=== PATIENT | female | born 1975 | race Caucasian/White ===

== ENCOUNTER 2017-05-05 05:24 | Emergency (ER) | payer OTHER ==
[2017-05-05 05:39] LABS: URINE APPEARANCE SL CLOUDY; URINE BILIRUBIN NEGATIVE (NEGATIVE); URINE BLOOD LARGE (NEGATIVE); URINE COLOR RED; URINE GLUCOSE (UA) NEGATIVE (NEGATIVE); URINE KETONE NEGATIVE (NEGATIVE); URINE LEUKOCYTE ESTERASE LARGE (NEGATIVE); URINE NITRITE NEGATIVE (NEGATIVE); URINE PROTEIN TRACE (NEGATIVE); URINE UROBILINOGEN 0.2 E.U./dL (0.20 - 1.00)
--- NOTE | 2017-05-05 05:45 | Emergency Department Record ---
History of Present Illness - General Chief complaint: Female Urogenital Problem Stated complaint: I THINK I HAVE A BLADDER INFECTION Time Seen by Provider: 05/05/17 05:25 Source: Patient Mode of Arrival: Ambulatory Limitations: No limitations - History of Present Illness Initial comments: 41 yo female presents to ED for evaluation of urinary burning and urgency that began 2 hours ago. Patient reports similar symptoms previously with UTI, denies fever or flank pain symptoms. Patient denies abdominal pain, nausea, or vomiting symptoms. MD Complaint: Dysuria Onset/Timin -: Minutes(s) Severity scale (1-10): 6 Quality: Burning, Cramping Consistency: Constant Improves with: None Worsens with: None Patient : No Associated Symptoms: Dysuria, Hematuria - Related Data Sexually active: No Home Medications Medication Instructions Recorded Confirmed Last Taken Bupropion HCl [Wellbutrin Xl] 450 mg PO DAILY 05/05/17 05/05/17 Unknown Lorazepam [Ativan] 1 mg PO DAILY 05/05/17 05/05/17 Unknown Ondansetron HCl [Zofran] 4 mg PO Q8H PRN 05/05/17 05/05/17 Unknown Scopolamine 1 each TD DAILY 05/05/17 05/05/17 Unknown Zolpidem Tartrate [Zolpidem 10 mg PO QHS 05/05/17 05/05/17 Unknown Tartrate] Previous Rx's Medication Instructions Recorded Nitrofurantoin Monohyd/M-Cryst 100 mg PO BID #13 capsule 05/05/17 [Macrobid 100 mg Capsule] Phenazopyridine HCl [Pyridium] 200 mg PO TID #5 tab 05/05/17 Allergies Allergy/AdvReac Type Severity Reaction Status Date / Time Penicillins Allergy Unknown ANAPHYLAXIS Verified 11/18/13 11:31 morphine Allergy NAUSEA AND Verified 11/18/13 11:31 VOMITING Travel Screening - Travel/Exposure Within Last 30 Days Have you traveled within the last 30 days?: No Review of Systems Constitutional: Denies: Chills, Fever, Malaise, Night sweats Eyes: Denies: Eye discharge, Eye pain ENT: Denies: Congestion, Ear pain Respiratory: Denies: Cough, Dyspnea Cardiovascular: Denies: Chest pain, Dyspnea on exertion Endocrine: Denies: Fatigue, Heat or cold intolerance Gastrointestinal: Denies: Abdominal pain, Nausea, Vomiting Genitourinary: Reports: Dysuria, Urgency. Denies: Hematuria, Incontinence, Retention Musculoskeletal: Denies: Arthralgia, Back pain, Gout, Joint swelling Skin: Denies: Bruising, Change in color Neurological: Denies: Abnormal gait, Confusion, Headache, Seizure Psychiatric: Denies: Anxiety Hematological/Lymphatic: Denies: Anemia, Blood Clots Past Medical History - SOCIAL HISTORY Smoking Status: Never smoker - RESPIRATORY Hx Respiratory Disorders: No - CARDIOVASCULAR Hx Cardio Disorders: Yes Hx Cardiac Cath: Yes Hx Heart Attack: Yes Hx Hypertension: Yes - NEURO Hx Neuro Disorders: Yes Hx Headaches: Yes - GI Hx GI Disorders: Yes Comment:: Gastroparesis - Hx Genitourinary Disorders: No - ENDOCRINE Hx Endocrine Disorders: No - MUSCULOSKELETAL Hx Musculoskeletal Disorders: No - PSYCH Hx Psych Problems: Yes Hx Anxiety: Yes Hx Depression: Yes - HEMATOLOGY/ONCOLOGY Hx Hematology/Oncology Disorders: No Family Medical History Any Significant Family History?: Yes Hx Heart Disease: Mother Hx HTN: Father, Mother Physical Exam - General General Appearance: Alert, Oriented x3, Cooperative, Mild distress, Anxious Limitations: No limitations - Head Head exam: Atraumatic, Normocephalic, Normal inspection Head exam detail: negative: Abrasion, Contusion, Steinberg's sign, General tenderness, Hematoma, Laceration - Eye Eye exam: Normal appearance. negative: Conjunctival injection, Periorbital swelling, Periorbital tenderness, Scleral icterus - ENT Ear exam: negative: Auricular hematoma, Auricular trauma Nasal Exam: negative: Active bleeding, Discharge, Dried blood, Foreign body Mouth exam: negative: Drooling, Laceration, Muffled voice, Tongue elevation - Neck Neck exam: Normal inspection. negative: Meningismus, Tenderness - Respiratory Respiratory exam: Normal lung sounds bilaterally. negative: Rales, Respiratory distress, Rhonchi, Stridor - Cardiovascular Cardiovascular Exam: Regular rate, Normal rhythm, Normal heart sounds - GI/Abdominal GI/Abdominal exam: Soft. negative: Rebound, Rigid, Tenderness - Rectal Rectal exam: Deferred - exam: Deferred - Extremities Extremities exam: Normal inspection. negative: Calf tenderness, Pedal edema, Tenderness - Back Back exam: Denies: CVA tenderness (R), CVA tenderness (L) - Neurological Neurological exam: Alert, Normal gait, Oriented X3 - Psychiatric Psychiatric exam: Anxious, Normal mood - Skin Skin exam: Normal color. negative: Abrasion Type of lesion: negative: abrasion Course Vital Signs 05/05/17 05:33 Temperature 97.7 F Pulse Rate [ 86 Pulse Ox Probe] Respiratory 18 Rate Blood Pressure 146/94 [Left Arm] Pulse Ox 97 - Reevaluation(s) Reevaluation #1: 05/05/17 05:47 UA reviewed, appears consistent with mild UTI. Will initiate treatment with Macrobid and Pyridium as directed. Medical Decision Making - Lab Data Lab Results 05/05/17 Range/Units 05:41 Urine Color Red H Urine Appearance Sl cloudy Urine pH 6.5 (5.0-8.0) Ur Specific [place] 1.010 (1.002-1.030) Urine Protein Trace H (NEGATIVE) Urine Glucose (UA) Negative (NEGATIVE) Urine Ketones Negative (NEGATIVE) Urine Blood Large H (NEGATIVE) Urine Nitrite Negative (NEGATIVE) Urine Bilirubin Negative (NEGATIVE) Urine Urobilinogen 0.2 (0.20 - 1.00) E.U./dL Ur Leukocyte Esterase Large H (NEGATIVE) Disposition Disposition: Discharge Clinical Impression: UTI (urinary tract infection) Qualifiers: Urinary tract infection type: acute cystitis Hematuria presence: with hematuria Qualified Code(s): N30.01 - Acute cystitis with hematuria Disposition: Home, Self-Care Condition: (2) Stable Instructions: Urinary Tract Infection in Women (ED) Additional Instructions: Return to ED if your symptoms worsen or if you have any concerns. Macrobid and Pyridium as directed. Follow-up with your family doctor in 3-5 days as directed. Prescriptions: Nitrofurantoin Monohyd/M-Cryst [Macrobid 100 mg Capsule] 100 mg PO BID #13 capsule Phenazopyridine HCl [Pyridium] 200 mg PO TID #5 tab Forms: Patient Portal Access Time of Disposition: 05:50 Quality - Quality Measures Quality Measures: N/A - Blood Pressure Screening Does Patient Have Any of the Following: Active Dx of HTN Blood Pressure Classification: Hypertensive Reading Systolic Measurement: 146 Diastolic Measurement: 94 Screening for High Blood Pressure: Patient Exclusion, Hx of HTN [[id number]]
[2017-05-05 05:46] LABS: URINE BACTERIA FEW; URINE EPITHELIAL CELLS 0 - 2 (FEW); URINE RBC 36 - 50 (NONE SEEN)
[2017-05-05] MEDS ORDERED: PHENAZOPYRIDINE HCL 95 MG TABLET PO ONE (05:50)
[2017-05-05] MEDS ORDERED: NITROFURANTOIN MONO 100 MG CAPSULE PO ONE (05:50)
== END 2017-05-05 05:49 | disposition home or self-care (01) ==
LOC: ER 05:24
DX: N30.01 Acute cystitis with hematuria (principal); I10 Essential (primary) hypertension; I25.2 Old myocardial infarction
CPT/HCPCS: 81001; 99282

== ENCOUNTER 2017-06-21 22:03 | Emergency (ER) | payer OTHER ==
[2017-06-21] MEDS ORDERED: 0.9 % SODIUM CHLORIDE 1,000 ML BAG IV ONE (22:33)
[2017-06-21] MEDS ORDERED: PROMETHAZINE HCL 12.5 MG in 0.9 % SODIUM CHLORIDE 100ML 100 ML IVPB ONE (22:34)
[2017-06-21 22:37] LABS: BASO % 0.2 % (0-6); EOS % 0.8 % (0-6); GRAN % 61.2 % (47-80); HEMATOCRIT 40.8 % (35.0-47.0); HEMOGLOBIN 13.9 gm/dl (11.6-16.0); MEAN CELL VOLUME 87.4 fl (81-97); MEAN CORPUSCULAR HEMOGLOBIN 29.8 pg (27-33); MEAN CORPUSCULAR HGB CONC 34.1 g/dl (32-36); MEAN PLATELET VOLUME 8.7 fl (7.4-10.4); MONO % 8.8 % (0-9); PLATELET COUNT 443 K/uL (130-400); RED BLOOD COUNT 4.67 M/uL (3.80-5.40); RED CELL DISTRIBUTION WIDTH 11.7 % (11.5-14.5); WHITE BLOOD COUNT W/O DIFF 10.7 K/uL (4.2-12.2)
[2017-06-21 22:39] LABS: ALB/GLOB RATIO 1.2 (1.1-1.8); ALBUMIN 4.1 g/dL (4.0-5.0); ALKALINE PHOSPHATASE 87 U/L (35-104); ALT/SGPT 21 U/L (<33); AST/SGOT 15 U/L (10.0-35.0); BLOOD UREA NITROGEN 10 mg/dL (6-20); CREATININE 0.8 mg/dL (0.5-0.9); EST GLOMERULAR FILTRATION RATE > 60 mL/min; GLUCOSE,RANDOM 94 mg/dL (74-109); LIPASE 39 U/L (13-60); TOTAL PROTEIN 7.4 g/dL (6.6-8.7)
[2017-06-21] MEDS ORDERED: SOD CHLOR 0.9% WITH KCL 40MEQ 40 MEQ/1,000 ML IV.SOLN IV ONE (22:41)
[2017-06-21 22:46] LABS: INFLUENZA A NEGATIVE (NEGATIVE); INFLUENZA B NEGATIVE (NEGATIVE)
--- NOTE | 2017-06-21 23:03 | Emergency Department Record ---
History of Present Illness - General Chief complaint: Flu Like Symptoms Stated complaint: CANT STOP VOMITING,COUGH Time Seen by Provider: 06/21/17 22:08 Source: Patient Mode of Arrival: Wheelchair Limitations: No limitations - History of Present Illness Initial comments: pt has had a cough and then started vomiting 5-6 times tonight. pt cant keep water down. pt has been having a problem with vomiting lately but this is much worse. pt became lightheaded. Onset/Timin -: Hour(s) Severity: Moderate Consistency: Intermittent Associated Symptoms: Nausea/vomiting - Eddie Coma Scale Eye Response: (4) Open spontaneously Motor Response: (6) Obeys commands Verbal Response: (5) Oriented Eddie Total: 15 - Symptoms of Stroke Symptoms of stroke: Dizziness - Related Data Home Medications Medication Instructions Recorded Confirmed Last Taken Vortioxetine Hydrobromide 10 mg PO DAILY 06/21/17 06/21/17 Unknown [Brintellix] Previous Rx's Medication Instructions Recorded Promethazine HCl [Phenergan] 12.5 mg RC BID #7 supp 06/22/17 Allergies Allergy/AdvReac Type Severity Reaction Status Date / Time Penicillins Allergy Unknown ANAPHYLAXIS Verified 11/18/13 11:31 morphine Allergy NAUSEA AND Verified 11/18/13 11:31 VOMITING Travel Screening - Travel/Exposure Within Last 30 Days Have you traveled within the last 30 days?: No - Travel/Exposure Within Last Year Have you traveled outside the [place] in the last year?: No - Additonal Travel Details Have you been exposed to anyone with a communicable illness?: No - Travel Symptoms Symptom Screening: None Review of Systems Reviewed: No additional complaints except as noted below Constitutional: Reports: As per HPI. Denies: Chills, Fever, Malaise, Night sweats, Weakness, Weight change Eyes: Reports: As per HPI. Denies: Eye discharge, Eye pain, Photophobia, Vision change ENT: Reports: As per HPI. Denies: Congestion, Dental pain, Ear pain, Epistaxis , Hearing loss, Throat pain Respiratory: Reports: As per HPI. Denies: Cough, Dyspnea, Hemoptysis, Stridor, Wheezes Cardiovascular: Reports: As per HPI. Denies: Arrhythmia, Chest pain, Dyspnea on exertion, Edema, Murmurs, Orthopnea, Palpitations, Paroxysmal nocturnal dyspnea, Rheumatic Fever, Syncope Endocrine: Reports: As per HPI. Denies: Fatigue, Heat or cold intolerance, Polydipsia, Polyuria Gastrointestinal: Reports: As per HPI. Denies: Abdominal pain, Constipation, Diarrhea, Hematemesis, Hematochezia, Melena, Nausea, Vomiting Genitourinary: Reports: As per HPI. Denies: Abnormal menses, Discharge, Dyspareunia, Dysuria, Frequency, Hematuria, Incontinence, Retention, Urgency Musculoskeletal: Reports: As per HPI. Denies: Arthralgia, Back pain, Gout, Joint swelling, Myalgia, Neck pain Skin: Reports: As per HPI. Denies: Bruising, Change in color, Change in hair/ nails, Lesions, Pruritus, Rash Neurological: Reports: As per HPI. Denies: Abnormal gait, Confusion, Headache, Numbness, Paresthesias, Seizure, Tingling, Tremors, Vertigo, Weakness Psychiatric: Reports: As per HPI. Denies: Anxiety, Auditory hallucinations, Depression, Homicidal thoughts, Suicidal thoughts, Visual hallucinations Hematological/Lymphatic: Reports: As per HPI. Denies: Anemia, Blood Clots, Easy bleeding, Easy bruising, Swollen glands Past Medical History - SOCIAL HISTORY Smoking Status: Never smoker Alcohol Use: None Drug Use: None - RESPIRATORY Hx Respiratory Disorders: No - CARDIOVASCULAR Hx Cardio Disorders: Yes Hx Cardiac Cath: Yes Hx Heart Attack: Yes Hx Hypertension: Yes - NEURO Hx Neuro Disorders: Yes Hx Headaches: Yes - GI Hx GI Disorders: Yes Comment:: Gastroparesis - Hx Genitourinary Disorders: No - ENDOCRINE Hx Endocrine Disorders: No - MUSCULOSKELETAL Hx Musculoskeletal Disorders: No - PSYCH Hx Psych Problems: Yes Hx Anxiety: Yes Hx Depression: Yes - HEMATOLOGY/ONCOLOGY Hx Hematology/Oncology Disorders: No Family Medical History Any Significant Family History?: No Hx Heart Disease: Mother Hx HTN: Father, Mother Physical Exam - General General Appearance: Alert, Oriented x3, Cooperative, Mild distress - Head Head exam: Normal inspection - Eye Eye exam: Normal appearance, PERRL, EOMI Pupils: Normal accommodation - ENT ENT exam: Normal exam, Mucous membranes dry, Normal external ear exam, Normal orophraynx Ear exam: Normal external inspection. negative: External canal tenderness Nasal Exam: Normal inspection. negative: Discharge, Sinus tenderness Mouth exam: Normal external inspection, Tongue normal Teeth exam: Normal inspection. negative: Dental caries Throat exam: Normal inspection. negative: Tonsillar erythema, Tonsillar exudate - Neck Neck exam: Normal inspection, Full ROM. negative: Tenderness - Respiratory Respiratory exam: Normal lung sounds bilaterally. negative: Respiratory distress - Cardiovascular Cardiovascular Exam: Regular rate, Normal rhythm, Normal heart sounds - GI/Abdominal GI/Abdominal exam: Soft, Normal bowel sounds. negative: Tenderness - Rectal Rectal exam: Deferred - exam: Deferred - Extremities Extremities exam: Normal inspection, Full ROM, Normal capillary refill. negative: Tenderness - Back Back exam: Reports: Normal inspection, Full ROM. Denies: Muscle spasm, Rash noted, Tenderness - Neurological Neurological exam: Alert, CN II-XII intact, Normal gait, Oriented X3 - Psychiatric Psychiatric exam: Normal affect, Normal mood - Skin Skin exam: Dry, Intact, Normal color, Warm Course Vital Signs 06/21/17 22:18 Temperature 99.0 F Pulse Rate [ 83 Pulse Ox Probe] Respiratory 20 Rate Blood Pressure 119/88 [Left Arm] Pulse Ox 99 - Reevaluation(s) Reevaluation #1: 06/22/17 00:32 pt feels better Medical Decision Making - Lab Data Result diagrams: 06/21/17 22:10 06/21/17 22:10 Lab Results 06/21/17 06/21/17 06/21/17 Range/Units 22:00 22:10 22:10 WBC 10.7 (4.2-12.2) K/uL RBC 4.67 (3.80-5.40) M/uL Hgb 13.9 (11.6-16.0) gm/dl Hct 40.8 (35.0-47.0) % MCV 87.4 (81-97) fl MCH 29.8 (27-33) pg MCHC 34.1 (32-36) g/dl RDW 11.7 (11.5-14.5) % Plt Count 443 H (130-400) K/uL MPV 8.7 (7.4-10.4) fl Gran % 61.2 (47-80) % Lymphocytes % 29.0 (16-45) % Monocytes % 8.8 (0-9) % Eosinophils % 0.8 (0-6) % Basophils % 0.2 (0-6) % Sodium 140 (136-145) mmol/L Potassium 3.0 L (3.4-4.5) mmol/L Chloride 99 (98-107) mmol/L Carbon Dioxide 27.0 (22-29) mmol/L Anion Gap 14.0 (7-16) BUN 10 (6-20) mg/dL Creatinine 0.8 (0.5-0.9) mg/dL Estimated GFR > 60 mL/min Random Glucose 94 (74-109) mg/dL Calcium 8.7 (8.6-10.0) mg/dL Total Bilirubin 0.30 (0.2-1.0) mg/dL AST 15 (10.0-35.0) U/L ALT 21 (<33) U/L Alkaline Phosphatase 87 (35-104) U/L Total Protein 7.4 (6.6-8.7) g/dL Albumin 4.1 (4.0-5.0) g/dL Globulin 3.3 (1.4-4.8) gm/dL Albumin/Globulin Ratio 1.2 (1.1-1.8) Lipase 39 (13-60) U/L Influenza Type A Ag Negative (NEGATIVE) Influenza Type B Ag Negative (NEGATIVE) Disposition Disposition: Discharge Clinical Impression: Hypokalemia, Cough Vomiting Qualifiers: Vomiting type: unspecified Vomiting Intractability: intractable Nausea presence : with nausea Qualified Code(s): R11.2 - Nausea with vomiting, unspecified Disposition: Home, Self-Care Condition: (1) Good Instructions: Acute Nausea and Vomiting (ED), Hypokalemia (ED) Additional Instructions: follow up with family doctor. return sooner if worse Prescriptions: Promethazine HCl [Phenergan] 12.5 mg RC BID #7 supp Forms: Patient Portal Access Quality - Quality Measures Quality Measures: N/A - Blood Pressure Screening Does Patient Have Any of the Following: No Blood Pressure Classification: Pre-Hypertensive BP Reading Systolic Measurement: 120 Diastolic Measurement: 84 Screening for High Blood Pressure: < Pre-Hypertensive BP, F/U Documented > [ G8950] Pre-Hypertensive Follow-up Interventions: Follow-up with rescreen every year.
[2017-06-21 23:42] LABS: URINE APPEARANCE CLEAR; URINE BILIRUBIN NEGATIVE (NEGATIVE); URINE BLOOD NEGATIVE (NEGATIVE); URINE COLOR YELLOW; URINE GLUCOSE (UA) NEGATIVE (NEGATIVE); URINE KETONE NEGATIVE (NEGATIVE); URINE LEUKOCYTE ESTERASE NEGATIVE (NEGATIVE); URINE NITRITE NEGATIVE (NEGATIVE); URINE PROTEIN NEGATIVE (NEGATIVE); URINE UROBILINOGEN 0.2 E.U./dL (0.20 - 1.00)
[2017-06-22] MEDS ORDERED: POTASSIUM CHLORIDE 20 MEQ/15ML CUP PO ONE (00:11)
--- NOTE | 2017-06-22 09:31 | RADIOLOGY REPORT ---
EXAM: CHEST, TWO VIEWS HISTORY: DIFFICULTY IN BREATHING. TECHNIQUE: Frontal and lateral views of the chest were performed. Comparison: 05/27/12. FINDINGS: The heart size is normal. The lungs are hyperinflated. No infiltrate or pleural effusion. The osseous structures are normal. IMPRESSION: NEGATIVE CHEST EXAMINATION. JOB NUMBER: [id number] MTDD
== END 2017-06-22 00:47 | disposition home or self-care (01) ==
LOC: ER 22:03
DX: E87.6 Hypokalemia (principal); R05 Cough; R11.2 Nausea with vomiting, unspecified; R42 Dizziness and giddiness; R06.00 Dyspnea, unspecified; I10 Essential (primary) hypertension; I25.2 Old myocardial infarction
CPT/HCPCS: 71046; 80053; 81003; 83690; 85025; 87400; 96361; 96374; 96375; 99284; J2550; J7030

== ENCOUNTER 2018-01-04 11:30 | Emergency (ER) | payer OTHER ==
[2018-01-04] MEDS ORDERED: KETOROLAC 30 MG/ML VIAL IVP ONE (11:51)
[2018-01-04] MEDS ORDERED: SODIUM CHLORIDE 0.9% 500 ML IV ONE (11:51)
[2018-01-04 12:11] LABS: BASO % 0.2 % (0-6); EOS % 1.2 % (0-6); GRAN % 58.8 % (47-80); HEMOGLOBIN 15.9 gm/dl (11.6-16.0); LYMPH % 32.1 % (16-45); MEAN CELL VOLUME 88.3 fl (81-97); MEAN CORPUSCULAR HEMOGLOBIN 30.5 pg (27-33); MEAN CORPUSCULAR HGB CONC 34.6 g/dl (32-36); MEAN PLATELET VOLUME 8.8 fl (7.4-10.4); MONO % 7.7 % (0-9); PLATELET COUNT 525 K/uL (130-400); RED BLOOD COUNT 5.21 M/uL (3.80-5.40); WHITE BLOOD COUNT W/O DIFF 8.5 K/uL (4.2-12.2)
[2018-01-04 12:22] LABS: BLOOD UREA NITROGEN 12 mg/dL (6-20)
[2018-01-04 12:23] LABS: EST GLOMERULAR FILTRATION RATE > 60 mL/min; TOTAL PROTEIN 7.7 g/dL (6.6-8.7)
[2018-01-04 12:25] LABS: GLUCOSE,RANDOM 103 mg/dL (74-109)
[2018-01-04 12:28] LABS: ALB/GLOB RATIO 1.5 (1.1-1.8); ALBUMIN 4.6 g/dL (4.0-5.0); ALKALINE PHOSPHATASE 89 U/L (35-104); ALT/SGPT 14 U/L (<33); AST/SGOT 19 U/L (10.0-35.0)
[2018-01-04 13:24] LABS: URINE APPEARANCE CLEAR; URINE BILIRUBIN NEGATIVE (NEGATIVE); URINE BLOOD NEGATIVE (NEGATIVE); URINE COLOR YELLOW; URINE GLUCOSE (UA) NEGATIVE (NEGATIVE); URINE KETONE NEGATIVE (NEGATIVE); URINE LEUKOCYTE ESTERASE TRACE (NEGATIVE); URINE NITRITE NEGATIVE (NEGATIVE); URINE PROTEIN NEGATIVE (NEGATIVE); URINE UROBILINOGEN 0.2 E.U./dL (0.20 - 1.00)
[2018-01-04 13:32] LABS: URINE MUCUS LIGHT; URINE RBC NONE SEEN (NONE SEEN); URINE WBC 0 - 2 (0-2/hpf)
--- NOTE | 2018-01-04 13:43 | Emergency Department Record ---
History of Present Illness - General Chief Complaint: Abdominal Pain Stated Complaint: ABD PAIN Time Seen by Provider: 01/04/18 11:46 Mode of Arrival: Ambulatory - History of Present Illness Onset/Timin -: Days(s) Location: LLQ Radiation: Back Migration to: LLQ Severity: Severe Severity scale (1-10): 10 Quality: Stabbing Consistency: Constant Improves With: Nothing Worsens With: Other Associated Symptoms: Nausea - Related Data Patient : No Home Medications Medication Instructions Recorded Confirmed Last Taken Prochlorperazine Maleate 5 mg PO DAILY 01/04/18 01/04/18 Unknown [Compazine] Previous Rx's Medication Instructions Recorded Ibuprofen [Motrin 600Mg] 600 mg PO Q6H 10 Days #40 tablet 01/04/18 Allergies Allergy/AdvReac Type Severity Reaction Status Date / Time Penicillins Allergy Unknown ANAPHYLAXIS Verified 01/04/18 11:38 morphine Allergy NAUSEA AND Verified 01/04/18 11:38 VOMITING Travel Screening - Travel/Exposure Within Last 30 Days Have you traveled within the last 30 days?: No Review of Systems Constitutional: Denies: Chills, Fever Eyes: Denies: Eye discharge ENT: Denies: Congestion, Dental pain Respiratory: Denies: Cough, Dyspnea Cardiovascular: Denies: Arrhythmia, Chest pain Endocrine: Denies: Fatigue Gastrointestinal: Reports: As per HPI Genitourinary: Denies: Abnormal menses Musculoskeletal: Reports: Back pain. Denies: Arthralgia Skin: Denies: Bruising Neurological: Denies: Abnormal gait Psychiatric: Denies: Anxiety Hematological/Lymphatic: Denies: Anemia Past Medical History - SOCIAL HISTORY Smoking Status: Never smoker Alcohol Use: None Drug Use: None - RESPIRATORY Hx Respiratory Disorders: No - CARDIOVASCULAR Hx Cardio Disorders: Yes Hx Cardiac Cath: Yes Hx Heart Attack: Yes Hx Hypertension: Yes - NEURO Hx Neuro Disorders: Yes Hx Headaches: Yes - GI Hx GI Disorders: Yes Comment:: Gastroparesis - Hx Genitourinary Disorders: No - ENDOCRINE Hx Endocrine Disorders: No - MUSCULOSKELETAL Hx Musculoskeletal Disorders: No - PSYCH Hx Psych Problems: Yes Hx Anxiety: Yes Hx Depression: Yes - HEMATOLOGY/ONCOLOGY Hx Hematology/Oncology Disorders: No Family Medical History Any Significant Family History?: Yes Hx Heart Disease: Mother Hx HTN: Father, Mother Physical Exam - General General Appearance: Alert, Oriented x3, Cooperative, No acute distress - Head Head exam: Atraumatic, Normal inspection - Eye Eye exam: Normal appearance, PERRL Pupils: Normal accommodation - ENT ENT exam: Normal exam, Mucous membranes moist, Normal external ear exam, Normal orophraynx, TM's normal bilaterally Ear exam: Normal external inspection. negative: External canal tenderness Nasal Exam: Normal inspection. negative: Discharge, Sinus tenderness Mouth exam: Normal external inspection, Tongue normal Teeth exam: Normal inspection. negative: Dental caries Throat exam: Normal inspection. negative: Tonsillar erythema, Tonsillar exudate - Neck Neck exam: Normal inspection. negative: Tenderness - Respiratory Respiratory exam: Normal lung sounds bilaterally. negative: Accessory muscle use, Stridor, Wheezes - Cardiovascular Cardiovascular Exam: Regular rate, Normal rhythm, Normal heart sounds. negative : Tachycardia - GI/Abdominal GI/Abdominal exam: Soft, Normal bowel sounds, Guarding, Tenderness. negative: Hernia, Mass (LLQ tenderness), Rebound - Extremities Extremities exam: Normal inspection. negative: Calf tenderness - Back Back exam: Reports: Normal inspection. Denies: CVA tenderness (R), CVA tenderness (L), Paraspinal tenderness - Neurological Neurological exam: Alert, Normal gait, Oriented X3 - Psychiatric Psychiatric exam: Normal affect, Normal mood - Skin Skin exam: negative: Normal color, Rash Course Vital Signs 01/04/18 01/04/18 11:33 13:00 Temperature 99.2 F Pulse Rate 146 H Pulse Rate [ 83 Pulse Ox Probe] Respiratory 20 18 Rate Blood Pressure 159/133 Blood Pressure 119/77 [Left Arm] Pulse Ox 98 99 - Reevaluation(s) Reevaluation #1: 01/04/18 13:38 Pt presented with LLQ sharp pain suggestive of renal stone. UA neg for infection or RBC, WBC normal, CT non acute. Re exam of the abd with no rebound , + tender to abd wall in LLQ worse with flexion of hip against resistance. Given Toradol with improvement. Long talk regarding symptoms. Pt has had PERRI with BSO, CT without hernia. Will treat with Motrin and follow with family doctor. If pain is worse, fever , vomiting, or other concern retrun to the ED> Pt agrees with plan. Medical Decision Making - Data Complexity MDM Data: Labs Ordered and/or Reviewed, X-Ray Ordered and/or Reviewed - Lab Data Result diagrams: 01/04/18 12:00 01/04/18 12:00 Lab Results 01/04/18 01/04/18 01/04/18 Range/Units 12:00 12:00 13:15 WBC 8.5 (4.2-12.2) K/uL RBC 5.21 (3.80-5.40) M/uL Hgb 15.9 (11.6-16.0) gm/dl Hct 46.0 (35.0-47.0) % MCV 88.3 (81-97) fl MCH 30.5 (27-33) pg MCHC 34.6 (32-36) g/dl RDW 12.0 (11.5-14.5) % Plt Count 525 H (130-400) K/uL MPV 8.8 (7.4-10.4) fl Gran % 58.8 (47-80) % Lymphocytes % 32.1 (16-45) % Monocytes % 7.7 (0-9) % Eosinophils % 1.2 (0-6) % Basophils % 0.2 (0-6) % Sodium 139 (136-145) mmol/L Potassium 4.0 (3.4-4.5) mmol/L Chloride 94 L (98-107) mmol/L Carbon Dioxide 23.0 (22-29) mmol/L Anion Gap 22.0 H (7-16) BUN 12 (6-20) mg/dL Creatinine 1.0 H (0.5-0.9) mg/dL Estimated GFR > 60 mL/min Random Glucose 103 (74-109) mg/dL Calcium 9.6 (8.6-10.0) mg/dL Total Bilirubin 0.40 (0.2-1.0) mg/dL AST 19 (10.0-35.0) U/L ALT 14 (<33) U/L Alkaline Phosphatase 89 (35-104) U/L Total Protein 7.7 (6.6-8.7) g/dL Albumin 4.6 (4.0-5.0) g/dL Globulin 3.1 (1.4-4.8) gm/dL Albumin/Globulin Ratio 1.5 (1.1-1.8) Urine Color Yellow Urine Appearance Clear Urine pH 6.5 (5.0-8.0) Ur Specific [place] 1.010 (1.002-1.030) Urine Protein Negative (NEGATIVE) Urine Glucose (UA) Negative (NEGATIVE) Urine Ketones Negative (NEGATIVE) Urine Blood Negative (NEGATIVE) Urine Nitrite Negative (NEGATIVE) Urine Bilirubin Negative (NEGATIVE) Urine Urobilinogen 0.2 (0.20 - 1.00) E.U./dL Ur Leukocyte Esterase Trace H (NEGATIVE) Urine RBC None seen (NONE SEEN) Urine WBC 0 - 2 (0-2/hpf) Ur Epithelial Cells 7 - 10 (FEW) Urine Mucus Light Disposition Disposition: Discharge Clinical Impression: Abdominal pain, Abdominal wall strain Disposition: Home, Self-Care Condition: (1) Good Instructions: Abdominal Pain (ED) Additional Instructions: Light diet as tolerated. Motrin 600mg Q 6 hours. Follow with your Family Doctor or return to [facility] ED is worse. Prescriptions: Ibuprofen [Motrin 600Mg] 600 mg PO Q6H 10 Days #40 tablet Forms: Patient Portal Access Quality - Quality Measures Quality Measures: N/A - Blood Pressure Screening Does Patient Have Any of the Following: No Blood Pressure Classification: Hypertensive Reading Systolic Measurement: 159 Diastolic Measurement: 133 Screening for High Blood Pressure: < Pre-Hypertensive BP, F/U Documented > [ G8950] Pre-Hypertensive Follow-up Interventions: Follow-up with rescreen every year.
--- NOTE | 2018-01-05 12:36 | CT SCAN REPORT ---
EXAM: EMERGENCY CT OF THE ABDOMEN AND PELVIS HISTORY: POSSIBLE LEFT RENAL STONE, LEFT FLANK AND LEFT LOWER QUADRANT PAIN SINCE LAST NIGHT. HYSTERECTOMY, APPENDECTOMY AND INGUINAL HERNIA SURGERY. TECHNIQUE: Axial CT scan of the abdomen and pelvis was performed without oral or IV contrast. Comparison: CT of the abdomen and pelvis 02/28/08. FINDINGS: No calcified gallstones are seen within the gallbladder. No intrarenal calculi identified on either side. No hydronephrosis or hydroureter seen on either side. As such it is somewhat difficult to follow the entire course of both ureters in their nondilated state throughout the retroperitoneum and pelvis, however, no definite ureteral calculus seen on either side and no bladder calculus evident. Evaluation of the bowel and viscera is extremely limited without oral or IV contrast. There is a small periumbilical anterior abdominal wall hernia containing adipose tissue, but no bowel. No definite hepatic, splenic, adrenal , pancreatic, or renal mass identified. The appendix and the uterus are not identified consistent with the surgical history. No free intraperitoneal air or free intraperitoneal fluid evident. IMPRESSION: 1. POSTOP APPENDECTOMY AND HYSTERECTOMY. 2. SMALL PERIUMBILICAL ANTERIOR ABDOMINAL WALL HERNIA CONTAINING ADIPOSE TISSUE , BUT NO BOWEL. 3. NO DEFINITE URINARY TRACT CALCULI OR HYDRONEPHROSIS EVIDENT. 4. NO FREE AIR OR FREE FLUID EVIDENT. JOB NUMBER: [id number] [facility]
== END 2018-01-04 13:54 | disposition home or self-care (01) ==
LOC: ER 11:30
DX: S39.011A Strain of muscle, fascia and tendon of abdomen, initial encounter (principal); R11.0 Nausea; I10 Essential (primary) hypertension; I25.2 Old myocardial infarction; X58.XXXA Exposure to other specified factors, initial encounter
CPT/HCPCS: 99284 ×2; 96374; 85025; 80053; 81001; 74176; J1885